=== PATIENT | female | born 1970 | race Hispanic/Latino ===

== ENCOUNTER 2021-06-07 20:06 | Emergency (ER) | payer BC ==
[~2021-06-07] VITALS: Ht 160 cm; Wt 99.8 kg
[2021-06-07] MEDS ORDERED: ACETAMINOPHEN 500 MG TABLET ONE (21:00)
[2021-06-07 21:05] VITALS: BP 132/79
[2021-06-07] MEDS ORDERED: ACETAMINOPHEN 500 MG TABLET PO ONE (21:30)
[2021-06-07 21:38] LABS: APPEARANCE,URINE Cloudy (CLEAR); BILIRUBIN,URINE Negative (NEGATIVE); COLOR,URINE Yellow (YELLOW); GLUCOSE, URINE (UA) Negative (NEGATIVE); KETONES,URINE Negative (NEGATIVE); LEUKOCYTE ESTERASE ,URINE Small (NEGATIVE); NITRATE,URINE Positive (NEGATIVE); OCCULT BLOOD,URINE Trace (NEGATIVE); PH,URINE 7.5 (5.0-8.0); PROTEIN,URINE Negative (NEGATIVE)
[2021-06-07 21:47] LABS: BACTERIA,URINE Many /HPF (None Seen)
[2021-06-07 21:48] LABS: MUCUS,URINE Few LPF (None Seen); SQUAMOUS EPITHELIAL CELL,UR 0-2 /HPF (0-2)
[2021-06-07] MEDS ORDERED: MACR100 PO (22:44)
== END 2021-06-07 22:51 | disposition home or self-care (01) ==
LOC: EDH 20:06
DX: M54.2 Cervicalgia (principal); N39.0 Urinary tract infection, site not specified; Z88.8 Allergy status to other drugs, medicaments and biological substances; Z88.0 Allergy status to penicillin; Z88.6 Allergy status to analgesic agent; V49.49XA Driver injured in collision with other motor vehicles in traffic accident, initial encounter; Y93.89 Activity, other specified; Y92.413 State road as the place of occurrence of the external cause; Y99.8 Other external cause status
CPT/HCPCS: 72125; 81001; 87077; 87088; 87186

== ENCOUNTER → 2024-02-29 | Outpatient (CLI) | payer BC ==
[~2024-02-29] MED LIST: MACR100 PO
== END | disposition home or self-care (01) ==
LOC: SHCH 15:25
PROVIDERS: ATTEND Internal Medicine Cardiovascular Disease
DX: R06.09 Other forms of dyspnea (principal); R60.9 Edema, unspecified; I87.1 Compression of vein; I87.2 Venous insufficiency (chronic) (peripheral)
CPT/HCPCS: 93306

== ENCOUNTER → 2024-05-29 | Outpatient (CLI) | payer BC | END | disposition home or self-care (01) | LOC: SHCH 15:03 | PROVIDERS: ATTEND Internal Medicine Cardiovascular Disease | DX: I87.2 Venous insufficiency (chronic) (peripheral) (principal); I87.1 Compression of vein | CPT/HCPCS: 93970 ==